=== PATIENT | female | born 1965 | race Caucasian/White ===

== ENCOUNTER 2023-11-25 14:46 | Emergency (ER) | payer MEDICAID ==
[2023-11-25 15:09] VITALS: BP 134/83; PULSE 69
[2023-11-25] MEDS: Ondansetron 4 MG Tab.DIS PO ONE (15:47)
== END 2023-11-25 15:50 | disposition home or self-care (01) ==
LOC: KA.ED 14:46
DX: R11.0 Nausea (principal); Z88.5 Allergy status to narcotic agent; Z91.040 Latex allergy status; Z88.0 Allergy status to penicillin; Z79.899 Other long term (current) drug therapy
CPT/HCPCS: 99283; A9270-GY